=== PATIENT | female | born 2005 | race American Indian/Alaskan Native ===

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

== ENCOUNTER 2024-11-25 16:19 | Emergency (ER) | payer SELFPAY ==
[2024-11-25] MEDS: Ketorolac 30 MG/ML SDV IM ONE (16:30)
== END 2024-11-25 17:40 | disposition home or self-care (01) ==
LOC: DL.ED 16:19
DX: S42.022A Displaced fracture of shaft of left clavicle, initial encounter for closed fracture (principal); V49.49XA Driver injured in collision with other motor vehicles in traffic accident, initial encounter
CPT/HCPCS: 73000; 73030; 96372; 99283; 99284; J1885